=== PATIENT | female | born 1980 | race African-American/Black ===

== ENCOUNTER 2017-10-09 15:34 | Observation (INO) | payer OTHER ==
[~2017-10-09] VITALS: Ht 154.9 cm; Wt 75.0 kg
[~2017-10-09 15:34] MED LIST: AMLO5TAB22 PO; METH750T2 PO; MOBI15TA PO
[2017-10-09 15:36] VITALS: BP 114/74; PULSE 103; RESP 16; TEMP 97.9; O2SAT 99
[2017-10-09 16:11] LABS: AUTOMATED NEUTROPHIL # 4.3 TH/MM3 (1.8-7.7); BASOPHIL % 0.2 % (0.0-2.0); EOSINOPHIL # 0.2 TH/MM3 (0-0.4); EOSINOPHIL % 4.2 % (0.0-4.0); HEMATOCRIT 34.2 % (35.0-46.0); HEMO FLAGS DIFF FINAL; LYMPH % 8.1 % (9.0-44.0); LYMPHOCYTE # 0.5 TH/MM3 (1.0-4.8); MEAN CELL VOLUME 81.8 FL (80.0-100.0); MEAN CORPUSCULAR HGB CONC 34.2 % (32.0-36.0); MONO % 13.6 % (0.0-8.0); NEUT % 73.9 % (16.0-70.0); PLATELET COUNT 268 TH/MM3 (150-450); RED BLOOD COUNT 4.18 MIL/MM3 (4.00-5.30); RED CELL DISTRIBUTION WIDTH 13.3 % (11.6-17.2); WHITE BLOOD COUNT 5.9 TH/MM3 (4.0-11.0)
[2017-10-09 16:14] LABS: BACTERIA, URINE MOD /hpf; BLOOD, URINE NEG (NEG); COMMENT (UR) CULTURE INDICATED; CULTURE IF INDICATED CULTURE INDICATED; GLUCOSE,URINE NEG (NEG); KETONE, URINE 10 mg/dL (NEG); MUCUS URINE FEW /lpf (OCC); NITRITE,URINE NEG (NEG); SQUAMOUS EPITHELIAL CELL URINE 4 /hpf (0-5); URINE COLOR YELLOW (YELLW/STRAW)
[2017-10-09 16:24] LABS: ALT (GPT) 46 U/L (10-53); ANION GAP 9 MEQ/L (5-15); AST (GOT) 26 U/L (15-37); BICARBONATE 20.8 MEQ/L (21.0-32.0); BLOOD UREA NITROGEN 5 MG/DL (7-18); CHLORIDE 99 MEQ/L (98-107); GLOMERULAR FILTRATION RATE 113 ML/MIN (>89); SODIUM (NA) 129 MEQ/L (136-145)
[2017-10-09 16:39] LABS: APTT (PATIENT) 26.4 SEC (24.3-30.1); INTERNATIONAL NORMALIZED RATIO 0.9 RATIO
[2017-10-09 16:40] LABS: ALKALINE PHOSPHATASE 43 U/L (45-117); BETA HCG QUANT 56013 MIU/ML (0-5); TOTAL BILIRUBIN ADULT 0.2 MG/DL (0.2-1.0)
[2017-10-09] MEDS ORDERED: BACT800T5 PO (17:13)
[2017-10-09] MEDS ORDERED: ZOFR4TAB PO (17:13)
[2017-10-09] MEDS ORDERED: SODIUM CHLOR 0.9% 1000 ML INJ 1,000 ML IV SCH (17:25)
[2017-10-09] MEDS ORDERED: cefTRIAXone INJ 1,000 MG in SODIUM CHLORIDE 0.9% INJ 100 ML IV ONE (17:30)
--- NOTE | 2017-10-09 17:34 | PD ---
HPI Chief Complaint: Medical Clearance Time Seen by Provider: 17:21 Travel History International Travel<30 days: No Contact w/Intl Traveler<30days: No Traveled to known affect area: No History of Present Illness HPI 37-year-old female approximately 15 weeks and here for evaluation of lower back pain, flank pain, nausea, vomiting, upper extremity bruising, and slight headache. The patient reports that she was diagnosed with a UTI by her application support engineer Dr. Park on of last week and was started on Bactrim. Since then she has been having nausea and vomiting which consisted of food and is sometimes bilious. No blood. Lower back and flank pain is moderate, worse with movements but she denies urinary symptoms. No vaginal bleeding or discharge. No abdominal pain. Subjective fevers and chills. She denies physical abuse or any known trauma. PFSH Past Medical History Anxiety: Yes Depression: Yes Cancer: No Cardiovascular Problems: Yes (htn) Diabetes: No Diminished Hearing: No Hypertension: Yes Psychiatric: Yes Immunizations Current: Yes Migraines: Yes ?: LMP: 06/2017 : 0 Past Surgical History Oral Surgery: Yes Other Surgery: Yes (tumor removal from uterus ) Social History Alcohol Use: Yes (OCCASIONAL) Tobacco Use: No Substance Use: No Allergies-Medications (Allergen,Severity, Reaction): Coded Allergies: Calcium Channel Blocking Agent Dilt (Verified Allergy, Severe, Headache, 10/09/17) Reported Meds & Prescriptions Reported Meds & Active Scripts Active Reported Zofran (Ondansetron HCl) 4 Mg Tab 4 Mg PO Q8HR PRN Bactrim DS (Sulfamethoxazole-Trimethoprim) 800-160 Mg Tab 1 Tab PO BID Review of Systems Except as stated in HPI: all other systems reviewed are Neg Physical Exam Narrative GENERAL: Well-developed, well-nourished, comfortable, no apparent distress. SKIN: Focused skin assessment warm/dry. Slight ecchymosis in various stages of healing on bilateral upper extremities. HEAD: Atraumatic. Normocephalic. EYES: Pupils equal and round. No scleral icterus. No injection or drainage. ENT: Mucous membranes pink and moist. NECK: Trachea midline. No JVD. CARDIOVASCULAR: Regular rate and rhythm. RESPIRATORY: No accessory muscle use. Clear to auscultation. Breath sounds equal bilaterally. GASTROINTESTINAL: Abdomen soft, non-tender, gravid uterus palpable above the umbilicus. MUSCULOSKELETAL: No obvious deformities. No clubbing. No cyanosis. No edema. Bilateral CVA tenderness. NEUROLOGICAL: Awake and alert. No obvious cranial nerve deficits. Motor grossly within normal limits. Normal speech. PSYCHIATRIC: Appropriate mood and affect; insight and judgment normal. Data Data Last Documented VS Vital Signs Date Time Temp Pulse Resp B/P (MAP) Pulse Ox O2 Delivery O2 Flow Rate FiO2 10/09/17 15:36 97.9 103 16 114/74 (87) 99 Orders Orders Beta Hcg (Quant/Titer) (10/09/17 15:43) Complete Blood Count With Diff (10/09/17 15:43) Comprehensive Metabolic Panel (10/09/17 15:43) Lipase (10/09/17 15:43) Prothrombin Time / Inr (Pt) (10/09/17 15:43) Act Partial Throm Time (Ptt) (10/09/17 15:43) Urinalysis - C+S If Indicated (10/09/17 15:43) Ed Urine Pregnancytest Poc (10/09/17 15:43) Urine Culture (10/09/17 15:50) Sodium Chlor 0.9% 1000 Ml Inj (Ns 1000 M (10/09/17 17:25) Ceftriaxone Inj (Rocephin Inj) (10/09/17 17:30) Cefazolin 2 Gm Premix (Ancef 2 Gm Premix (10/09/17 18:30) Lactated Ringer's 1000 Ml Inj (Lr 1000 M (10/09/17 18:30) Ondansetron Inj (Zofran Inj) (10/09/17 18:30) Ondansetron Inj (Zofran Inj) (10/09/17 18:30) Admit Order (Ed Use Only) (10/09/17 18:18) Labs Laboratory Tests Test 10/09/17 15:50 10/09/17 15:52 Urine Color YELLOW Urine Turbidity HAZY Urine pH 6.0 Urine Specific [place] 1.012 Urine Protein NEG mg/dL Urine Glucose (UA) NEG mg/dL Urine Ketones 10 mg/dL Urine Occult Blood NEG Urine Nitrite NEG Urine Bilirubin NEG Urine Urobilinogen LESS THAN 2.0 MG/DL Urine Leukocyte Esterase LARGE Urine RBC 3 /hpf Urine WBC 2 /hpf Urine Squamous Epithelial Cells 4 /hpf Urine Bacteria MOD /hpf Urine Mucus FEW /lpf Microscopic Urinalysis Comment CULTURE INDICATED White Blood Count 5.9 TH/MM3 Red Blood Count 4.18 MIL/MM3 Hemoglobin 11.7 GM/DL Hematocrit 34.2 % Mean Corpuscular Volume 81.8 FL Mean Corpuscular Hemoglobin 28.0 PG Mean Corpuscular Hemoglobin Concent 34.2 % Red Cell Distribution Width 13.3 % Platelet Count 268 TH/MM3 Mean Platelet Volume 7.2 FL Neutrophils (%) (Auto) 73.9 % Lymphocytes (%) (Auto) 8.1 % Monocytes (%) (Auto) 13.6 % Eosinophils (%) (Auto) 4.2 % Basophils (%) (Auto) 0.2 % Neutrophils # (Auto) 4.3 TH/MM3 Lymphocytes # (Auto) 0.5 TH/MM3 Monocytes # (Auto) 0.8 TH/MM3 Eosinophils # (Auto) 0.2 TH/MM3 Basophils # (Auto) 0.0 TH/MM3 CBC Comment DIFF FINAL Differential Comment Prothrombin Time 10.0 SEC Prothromb Time International Ratio 0.9 RATIO Activated Partial Thromboplast Time 26.4 SEC Blood Urea Nitrogen 5 MG/DL Creatinine 0.71 MG/DL Random Glucose 85 MG/DL Total Protein 8.1 GM/DL Albumin 3.7 GM/DL Calcium Level 9.0 MG/DL Alkaline Phosphatase 43 U/L Aspartate Amino Transf (AST/SGOT) 26 U/L Alanine Aminotransferase (ALT/SGPT) 46 U/L Total Bilirubin 0.2 MG/DL Sodium Level 129 MEQ/L Potassium Level 4.0 MEQ/L Chloride Level 99 MEQ/L Carbon Dioxide Level 20.8 MEQ/L Anion Gap 9 MEQ/L Estimat Glomerular Filtration Rate 113 ML/MIN Lipase 72 U/L Human Chorionic Gonadotropin, Quant 22573 MIU/ML [facility] Medical Decision Making Medical Screen Exam Complete: Yes Emergency Medical Condition: Yes Differential Diagnosis Pyelonephritis, nephrolithiasis, thrombocytopenia, coagulopathy, metabolic abnormality, dehydration, UTI, cystitis Narrative Course Vital signs reviewed. Labs are remarkable for sodium 129. UA is suggestive of UTI. Patient was written for a liter of normal saline IV bolus and IV Rocephin. Case discussed with application support engineer Dr. Aiken who was covering for the patient's application support engineer Dr. Park. She recommends serving the patient on Ancef 2 g IV every 8 hours as well as LR at 150 cc per hour. Zofran as needed for nausea. She will admit the patient to her service for further treatment and evaluation of pyelonephritis in . Diagnosis Primary Impression: Pyelonephritis affecting Qualified Codes: O23.02 - Infections of kidney in , second trimester Additional Impressions: Nausea and vomiting Qualified Codes: R11.2 - Nausea with vomiting, unspecified Dehydration Admitting Information Admitting Physician Requests: Observation Ubaldo Jackson MD Oct 09, 2017 17:34
[2017-10-09] MEDS: LACTATED RINGER'S 1000 ML INJ 1,000 ML IV SCH (18:24)
[2017-10-09] MEDS: ceFAZolin 2 GM PREMIX 50 ML IV SCH (18:27)
[2017-10-09] MEDS ORDERED: ONDANSETRON HCL 4 MG/2 ML VIAL IV PUSH ONE (18:30)
[2017-10-09] MEDS ORDERED: ONDANSETRON HCL 4 MG/2 ML VIAL IV PUSH PRN (18:30)
[2017-10-09 18:35] VITALS: BP 128/66; PULSE 96; RESP 20; O2SAT 100
[2017-10-10 00:59] VITALS: BP 97/52; PULSE 89; RESP 18; TEMP 98.2; O2SAT 97
[2017-10-10] MEDS: LACTATED RINGER'S 1000 ML INJ 1,000 ML IV SCH ×2 (01:10→07:50)
[2017-10-10] MEDS: ceFAZolin 2 GM PREMIX 50 ML IV SCH ×2 (02:22→10:52)
[2017-10-10 05:26] VITALS: BP 98/56; PULSE 86; RESP 16; TEMP 98.4; O2SAT 97
--- NOTE | 2017-10-10 08:53 | HHI.DCPOC ---
Discharge Care Plan Diagnosis: (1) Pyelonephritis affecting (2) Nausea and vomiting (3) Dehydration Report Symptoms to Your Doctor -Temperature above 100.5 degrees -Redness, of incision or excessive or foul smelling drainage -Unusual pain or calf pain -Increased vaginal bleeding -Painful or difficulty urinating -Feelings of extreme sadness or anxiety after 2 weeks Goals to Promote Your Health * To prevent worsening of your condition and complications * To maintain your health at the optimal level Directions to Meet Your Goals Take your medications as prescribed Follow your dietary instruction Follow activity as directed Ensure plenty of rest for recovery Drink fluids for hydration Keep your appointments as scheduled Take your immunizations and boosters as scheduled If your symptoms worsen call your PCP, if no PCP go to Urgent Care Center or Emergency Room Smoking is Dangerous to Your Health. Avoid second hand smoke Call the 24-hour crisis hotline for domestic abuse at Jese Park MD Oct 10, 2017 08:53
[2017-10-10 09:22] VITALS: BP 104/76; PULSE 90; RESP 18; TEMP 98; O2SAT 94
[2017-10-10 11:12] VITALS: BP 115/64; PULSE 95; RESP 18; TEMP 97.6; O2SAT 96
--- NOTE | 2017-10-10 23:12 | HHI.DS ---
Discharge Summary Admission Date Oct 09, 2017 at 18:20 Discharge Date: Oct 10, 2017 Admitting Diagnosis Pyelonephritis in , dehydration (1) Dehydration Diagnosis: Principal ICD Codes: E86.0 - Dehydration Status: Resolved (2) Diagnosis: Secondary ICD Codes: Z34.90 - Encounter for supervision of normal , unspecified , unspecified trimester CBC/BMP: 10/09/17 1552 10/09/17 1552 Significant Findings Laboratory Tests Test 10/09/17 15:50 10/09/17 15:52 Urine Turbidity HAZY (CLEAR) Urine Ketones 10 mg/dL (NEG) Urine Leukocyte Esterase LARGE (NEG) Urine Bacteria MOD /hpf (NONE) Urine Mucus FEW /lpf (OCC) Hematocrit 34.2 % (35.0-46.0) Neutrophils (%) (Auto) 73.9 % (16.0-70.0) Lymphocytes (%) (Auto) 8.1 % (9.0-44.0) Monocytes (%) (Auto) 13.6 % (0.0-8.0) Eosinophils (%) (Auto) 4.2 % (0.0-4.0) Lymphocytes # (Auto) 0.5 TH/MM3 (1.0-4.8) Blood Urea Nitrogen 5 MG/DL (7-18) Alkaline Phosphatase 43 U/L (45-117) Sodium Level 129 MEQ/L (136-145) Carbon Dioxide Level 20.8 MEQ/L (21.0-32.0) Lipase 72 U/L (73-393) Human Chorionic Gonadotropin, Quant 38295 MIU/ML (0-5) Hospital Course pt was admitted, given IV hydration and ancef. by the following morning the patient's symptoms had resolved and she was requesting d/c home. Pt Condition on Discharge: Stable Discharge Disposition: Discharge Home Discharge Instructions DIET: Follow Instructions for: As Tolerated, No Restrictions Activities you can perform: Regular-No Restrictions Jese Park MD Oct 10, 2017 23:12
--- NOTE | 2017-10-10 23:34 | MH ---
cc: LILA CORONA DATE OF ADMISSION: 10/09/2017 ADMITTING DIAGNOSIS: HISTORY OF PRESENT ILLNESS The patient is a 37-year-old 1, para 0 who presents at 15 weeks gestation complaining of a four day history of back pain, nausea, vomiting and headache. The patient had been given a prescription for Bactrim to treat UTI in the office. The patient reports the onset of nausea, vomiting and severe back pain approximately two to three days. Prior to presenting to the emergency room she states the pain had become severe and was not alleviated by Tylenol. Thus she presented to the ER. She denied having any blood in her urine, fever or chills. She also denied severe abdominal pain or bleeding. The patient states she had never had symptoms like this before. She denied trauma. No shortness of breath or chest pain, no dizziness or lightheadedness. Review of all other systems is negative. The patient's due date is March 31, that makes her approximately 15 weeks gestation today. PAST MEDICAL HISTORY: Significant for: Depression. Hypertension. Not currently requiring medications. PAST SURGICAL HISTORY: Significant for: Abdominal myomectomy in January of 2016. ORTHOPEDIC PHYSICIAN ASSISTANT HISTORY: No abnormal pap smears or STDs. Prior to her cycles were normal and coming every month. OBSTETRICAL HISTORY: This is her first . FAMILY HISTORY: Maternal grandfather with diabetes. Mother with heart disease. Paternal aunt and paternal grandfather also both have diabetes. SOCIAL HISTORY: Negative for cigarettes, alcohol or street drugs. 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 ALLERGIES: NONE. PHYSICAL EXAMINATION She is afebrile. Her height is 5'2", weight is 170. VITAL SIGNS: Blood pressure is 118/65, pulse 85. GENERAL: No acute distress. HEART: Regular rate and rhythm. LUNGS: Clear to auscultation bilaterally. BACK: Reveals no CVA tenderness. ABDOMEN: Gravid. heart tones are auscultated 140s to 150s. EXTREMITIES: Lower extremities nontender, non-edematous. BACK: No CVA tenderness. LABORATORY DATA: Urine revealed ketones. White count was normal. Potassium 4.0. IMPRESSION Abdominal pain, possible early pyelonephritis. The patient was admitted, given IV hydration, IV Ancef, and Zofran. PLAN: The patient will be admitted, watch for clinical improvement. It should also be noted that the patient is afebrile. MD CINTHYA Gonzales/RUBY /11:03 PM /11:15 PM
== END 2017-10-10 12:44 | disposition home or self-care (01) ==
LOC: NEPD 15:34 → NEDA 18:20 → NEPHCDU 19:34
PROVIDERS: ADMIT Obstetrics & Gynecology; ATTEND Obstetrics & Gynecology
DX: O23.42 Unspecified infection of urinary tract in pregnancy, second trimester (principal); E86.0 Dehydration; O99.282 Endocrine, nutritional and metabolic diseases complicating pregnancy, second trimester; O21.9 Vomiting of pregnancy, unspecified; O09.512 Supervision of elderly primigravida, second trimester; R51 Headache; Z3A.15 15 weeks gestation of pregnancy; I10 Essential (primary) hypertension
CPT/HCPCS: 80053; 81001; 83690; 84702; 85025; 85610; 85730; 87086; 96361; 96365; 96375; 96376; 99285; G0378; J0690; J0696; J2405; J7030; J7120

== ENCOUNTER 2017-10-27 08:13 | Emergency (ER) | payer OTHER ==
[~2017-10-27 08:13] MED LIST changes: -AMLO5TAB22 PO; -METH750T2 PO; -MOBI15TA PO; +ZOFR4TAB PO
--- NOTE | 2017-10-27 09:42 | PD ---
HPI Chief Complaint Fell down at home on her stomach Date Seen: Oct 27, 2017 Time Seen: 09:30 Travel History International Travel<30 Days: No Contact w/Intl Traveler<30Days: No Known Affected Area: No History of Present Illness HPI Patient is 37-year-old black female 1 P0 at [address] Park for care who was at home and had a fall out of the yard onto her stomach of and since then has had some slight right sided abdominal pain but otherwise no problems. no bleeding noted no leakage of fluid Weeks Gestation: 18 Para: 0 : 1 History Past Surgical History Narrative Surgical had a uterine myomectomy in the past Social History Alcohol Use: No Tobacco Use: No Substance Abuse: No Allergies-Medications (Allergen,Severity, Reaction): Coded Allergies: Calcium Channel Blocking Agent Dilt (Verified Allergy, Severe, Headache, 10/09/17) Home Meds Reported Medications Ondansetron (Zofran) 4 Mg Tab, 4 MG PO Q8HR Y for NAUSEA OR VOMITING, TAB 0 Refills 10/09/17 Review of Systems General / Constitutional: No: Fever, Weight Gain, Chills, Other Eyes: No: Diploplia, Blurred Vision, Visual changes, Pain, Photophobia HENT: No: Headaches, Vertigo, Lightheadedness Cardiovascular: No: Irregular Rhythm, Chest Pain or Discomfort, Palpitations, Tachycardia, Syncope, Varicosities, Edema, Cyanosis Respiratory: No: Cough, Short of Breath, Other Gastrointestinal: Abdominal Pain, No: Nausea, Vomiting, Diarrhea Genitourinary: No: Decreased Urinary Output, Oliguria Musculoskeletal: No: Limited ROM, Weakness, Cramping, Edema, Pain Skin: No Rash, No Itching, No Dryness, No Lumps, No Change in Pigmentation, No Change in Nails, No Alopecia, No Lesions Neurologic: No: Weakness, Dizziness, Syncope, Focal Abnormalities, Coordination Problem, Headache, Slurred Speech, Seizures Psychiatric: No: Depression, Suicidal Ideations, Homicidal Ideation Endocrine: No: Heat Intolerance, Cold Intolerance, Polydipsia, Polyuria, Other Physical Exam Narrative GENERAL: Well-nourished, well-developed patient. SKIN: Warm and dry. HEAD: Normocephalic and atraumatic. EYES: No scleral icterus. No injection or drainage. ENT: No nasal drainage noted. Mucous membranes pink. Airway patent. NECK: Supple, trachea midline. No JVD. CARDIOVASCULAR: Regular rate and rhythm without murmurs, gallops, or rubs. RESPIRATORY: Breath sounds equal bilaterally. No accessory muscle use. BREASTS: Bilateral exam showed no masses , no retractions, no nipple discharge. ABDOMEN/GI: Abdomen soft, non-tender, bowel sounds present, no rebound, no guarding Gravid to [18-] weeks size Fundal Height: [Just below umbilicus-] FHT's: 144 EXTREMITIES: No cyanosis or edema. BACK: Nontender without obvious deformity. No CVA tenderness. NEUROLOGICAL: Awake and alert. Motor and sensory grossly within normal limits. Five out of 5 muscle strength in all muscle groups. Normal speech. MDM Interpretation(s) Patient is 37-year-old black female at 18 weeks who presented after falling at home. She fell and hit her stomach but no other injury noted. She' s had no bleeding or leakage of fluid. heart tones are positive. Plan The patient to be discharged today to home observation she will observe for any increase in pain or vaginal leakage or bleeding. She is to follow-up with her OB provider Diagnosis Diagnosis: Primary Impression: 18 weeks gestation of Additional Impression: Fall Disposition: 01 DISCHARGE HOME Condition: Stable Patient Instructions: General Instructions Additional Instructions: drink 8-10 glasses of water a day. Keep shceduled appointments. Departure Forms: Tests/Procedures Ricky Valdovinos II, MD Oct 27, 2017 09:42
== END 2017-10-27 10:18 | disposition home or self-care (01) ==
LOC: HOBED 08:13
DX: O26.892 Other specified pregnancy related conditions, second trimester (principal); R10.9 Unspecified abdominal pain; Z3A.18 18 weeks gestation of pregnancy
CPT/HCPCS: 99283

== ENCOUNTER → 2017-11-01 | Outpatient (CLI) | payer OTHER | LOC: HPND 07:56 | PROVIDERS: ATTEND Obstetrics & Gynecology | DX: O09.512 Supervision of elderly primigravida, second trimester (principal); O99.322 Drug use complicating pregnancy, second trimester; O10.012 Pre-existing essential hypertension complicating pregnancy, second trimester | CPT/HCPCS: 76811 ==

== ENCOUNTER → 2017-11-29 | Outpatient (CLI) | payer OTHER | LOC: HPND 07:42 | PROVIDERS: ATTEND Obstetrics & Gynecology | DX: O99.322 Drug use complicating pregnancy, second trimester (principal); O10.012 Pre-existing essential hypertension complicating pregnancy, second trimester; O09.512 Supervision of elderly primigravida, second trimester | CPT/HCPCS: 76816; 76825; 76827; 93325 ==

== ENCOUNTER 2017-12-09 11:04 | Emergency (ER) | payer OTHER ==
--- NOTE | 2017-12-09 12:11 | PD ---
HPI Chief Complaint Fall Date Seen: Dec 09, 2017 Time Seen: 12:00 Travel History International Travel<30 Days: No Contact w/Intl Traveler<30Days: No Known Affected Area: No History of Present Illness HPI 37-year-old who is at 24 weeks gestation complains of falling this morning. Patient states that she was walking outside and tripped over a stump and fell forward onto her hands stomach and chest. Patient complains of a mild backache but really no other abrasions lacerations or pain. Patient states she' s had uncomplicated Weeks Gestation: 24 Para: 0 : 1 History Past Medical History Medical History: Denies Significant Hx Past Surgical History Narrative Surgical Uterine myomectomy Family History Family History: Negative Social History Alcohol Use: No Tobacco Use: No Substance Abuse: No Allergies-Medications (Allergen,Severity, Reaction): Coded Allergies: Calcium Channel Blocking Agent Dilt (Verified Allergy, Severe, Headache, 10/09/17) Home Meds Reported Medications Ondansetron (Zofran) 4 Mg Tab, 4 MG PO Q8HR Y for NAUSEA OR VOMITING, TAB 0 Refills 10/09/17 Review of Systems Except as stated in HPI: all other systems reviewed are Neg Physical Exam Narrative GENERAL: Well-nourished, well-developed patient. SKIN: Warm and dry. HEAD: Normocephalic and atraumatic. EYES: No scleral icterus. No injection or drainage. ENT: No nasal drainage noted. Mucous membranes pink. Airway patent. NECK: Supple, trachea midline. No JVD. CARDIOVASCULAR: Regular rate and rhythm without murmurs, gallops, or rubs. RESPIRATORY: Breath sounds equal bilaterally. No accessory muscle use. ABDOMEN/GI: Abdomen soft, non-tender, bowel sounds present, no rebound, no guarding Gravid to [24-] weeks size Fundal Height: [-] GENITOURINARY: Deferred External Genitalia: intact and normal in appearance BUS glands: [-] Cervix: [-] Dilatation: [-] Effacement: [-] Station: [-] Presentation: [-] Membranes: [intact or ruptured] Uterine Contractions: [-] FHT's: Category: [-] 1 Baseline: [-] 140 Reactive: [-] Moderate Variability: [-] Moderate Decels: [-] Absent EXTREMITIES: No cyanosis or edema. BACK: Nontender without obvious deformity. No CVA tenderness. NEUROLOGICAL: Awake and alert. Motor and sensory grossly within normal limits. Five out of 5 muscle strength in all muscle groups. Normal speech. Data Data Vital Signs Reviewed: Yes MDM Medical Record Reviewed: Yes Plan 37-year-old 24 weeks gestation monitored after a fall with no signs of abruption, vaginal bleeding, or contractions Follow-up with drywall mechanic as scheduled Diagnosis Diagnosis: Primary Impression: 24 weeks gestation of Additional Impression: Fall due to stumbling Disposition: 01 DISCHARGE HOME Carolyn Gutiérrez MD Dec 09, 2017 12:11
== END 2017-12-09 13:28 | disposition home or self-care (01) ==
LOC: HOBED 11:04
DX: O9A.212 Injury, poisoning and certain other consequences of external causes complicating pregnancy, second trimester (principal); W01.0XXA Fall on same level from slipping, tripping and stumbling without subsequent striking against object, initial encounter; Z3A.24 24 weeks gestation of pregnancy
CPT/HCPCS: 99283

== ENCOUNTER → 2018-01-04 | Outpatient (CLI) | payer OTHER | LOC: HPND 07:58 | PROVIDERS: ATTEND Obstetrics & Gynecology | DX: O10.012 Pre-existing essential hypertension complicating pregnancy, second trimester (principal); O09.522 Supervision of elderly multigravida, second trimester | CPT/HCPCS: 76816 ==

== ENCOUNTER → 2018-02-01 | Outpatient (CLI) | payer OTHER, MEDICAID | LOC: HPND 10:49 | PROVIDERS: ATTEND Obstetrics & Gynecology | DX: O09.523 Supervision of elderly multigravida, third trimester (principal); O10.013 Pre-existing essential hypertension complicating pregnancy, third trimester | CPT/HCPCS: 76816 ==

== ENCOUNTER 2018-03-08 09:32 | Inpatient (IN) | payer OTHER, MEDICAID ==
[~2018-03-08] VITALS: Ht 157.5 cm; Wt 84.4 kg
[2018-03-08] MEDS ORDERED: LACTATED RINGER'S 1000 ML INJ 1,000 ML IV ONE (11:45)
[2018-03-08 11:52] LABS: AUTOMATED NEUTROPHIL # 4.1 TH/MM3 (1.8-7.7); BASOPHIL % 0.5 % (0.0-2.0); EOSINOPHIL % 0.7 % (0.0-4.0); HEMATOCRIT 32.2 % (35.0-46.0); HEMOGLOBIN 10.6 GM/DL (11.6-15.3); LYMPH % 21.2 % (9.0-44.0); LYMPHOCYTE # 1.3 TH/MM3 (1.0-4.8); MEAN CELL VOLUME 85.3 FL (80.0-100.0); MEAN CORPUSCULAR HEMOGLOBIN 28.2 PG (27.0-34.0); MEAN PLATELET VOLUME 7.5 FL (7.0-11.0); MONO % 8.9 % (0.0-8.0); MONOCYTE # 0.5 TH/MM3 (0-0.9); NEUT % 68.7 % (16.0-70.0); PLATELET COUNT 287 TH/MM3 (150-450); RED BLOOD COUNT 3.77 MIL/MM3 (4.00-5.30); RED CELL DISTRIBUTION WIDTH 15.5 % (11.6-17.2)
[2018-03-08 12:09] LABS: ALT (GPT) 24 U/L (10-53); AST (GOT) 20 U/L (15-37); BICARBONATE 21.1 MEQ/L (21.0-32.0); BLOOD UREA NITROGEN 5 MG/DL (7-18); CALCIUM 9.1 MG/DL (8.5-10.1); CHLORIDE 109 MEQ/L (98-107); CREATININE 0.51 MG/DL (0.50-1.00); GLOMERULAR FILTRATION RATE 165 ML/MIN (>89); GLUCOSE,RANDOM 68 MG/DL (74-106); SODIUM (NA) 140 MEQ/L (136-145)
[2018-03-08 12:12] LABS: ALKALINE PHOSPHATASE 82 U/L (45-117); TOTAL BILIRUBIN ADULT 0.2 MG/DL (0.2-1.0); TOTAL PROTEIN 6.8 GM/DL (6.4-8.2)
[2018-03-08] MEDS ORDERED: LACTATED RINGER'S 1000 ML INJ 1,000 ML IV SCH (12:45)
[2018-03-08 13:42] LABS: BACTERIA, URINE MANY /hpf; BILIRUBIN, URINE NEG (NEG); BLOOD, URINE NEG (NEG); GLUCOSE,URINE NEG (NEG); KETONE, URINE NEG (NEG); NITRITE,URINE NEG (NEG); PH, URINE 6.5 (5.0-8.5); SQUAMOUS EPITHELIAL CELL URINE 16 /hpf (0-5); TRANSITIONAL EPI CELLS, URINE <1 /hpf; URINE COLOR LIGHT-YELLOW (YELLW/STRAW); URINE LEUKOCYTE ESTERASE LARGE (NEG)
--- NOTE | 2018-03-09 08:39 | MH ---
cc: Lisa Stephenson MD DATE OF ADMISSION: 03/08/2018 HISTORY OF PRESENT ILLNESS: The patient is a 37-year-old black female, G1 at approximately 36 weeks and 5 days gestation who presented for routine biophysical testing due to a history of hypertension and on the biophysical was found to have an GARRETT of 2.5. The rest of her biophysical was within normal limits. The patient reports that she has had good movement. She denies rupture of membranes. Denies bleeding and no contractions. Her care has really been uneventful except for anemia. PAST MEDICAL HISTORY: Pertinent for a history of depression, a history of hypertension, but not on medication. PAST SURGICAL HISTORY: An abdominal myomectomy. MEDICATIONS: Currently are vitamins and iron. ALLERGIES TO MEDICATIONS: NONE. SOCIAL HISTORY: No tobacco, no alcohol, no drug use. 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 FAMILY HISTORY: Heart disease and diabetes. [employer]ER [employer] HISTORY: No abnormal Paps. No STDs. PHYSICAL EXAM: VITAL SIGNS: Weight is 181, blood pressure 124/84, pulse of 70. BREASTS: Without masses, nodes or discharge. CHEST: Clear to auscultation bilaterally. CARDIAC: Regular rate and rhythm without murmur, rub or gallop. ABDOMEN: Gravid, a fundal height of 36. No hepatosplenomegaly. No CVA tenderness. No hernias. Cervical exam was deferred. EXTREMITIES: Without clubbing, cyanosis or edema. External monitoring revealed a baseline in the 140s with a reactive tracing, no contractions and the ultrasound revealed a vertex intrauterine with an GARRETT of 2.5 with breathing tone and movement noted. ASSESSMENT AND PLAN: The patient is a 37-year-old black female, G1 at 36 weeks and 5 days gestation with a history of hypertension, but normal throughout the and not on medication and an incidental amniotic fluid index of 2.5. The plan will be for 23-hour admission to IV hydrate the patient as well as orally hydrate the patient, continuously monitor the patient and followup an amniotic fluid index in the next day to see if there is an improvement. If there is not any improvement, we will plan for delivery, which she will be having a section due to her myomectomy. MD SUREKHA Aguilar/DL , 08:25 AM , 08:38 AM
[2018-03-09] MEDS: PRENATAL VITAMIN CHEWABLE TAB PO SCH (10:14)
[2018-03-09] MEDS ORDERED: SODIUM CHLORIDE FLUSH PRN IV FLUSH (10:15)
[2018-03-09] MEDS ORDERED: CHLORHEXIDINE GLUCONATE 2 % 1 PACK (2 CLOTHS) TOPICAL SCH (10:30)
[2018-03-09] MEDS ORDERED: ceFAZolin 2 GM PREMIX 50 ML - implanted port removal IV SCH (10:30)
[2018-03-09] MEDS ORDERED: SODIUM CHLORIDE 0.9% 1000 ML IV SCH (10:30)
--- NOTE | 2018-03-09 12:37 | PD.OB.ANTE ---
Subjective Interval History Pt is doing well, good fm, no co Objective Lab & Micro Results Date/Time Source Procedure Growth Status 03/08/18 10:45 Genital Genital Region Group B Streptococcus Screen - Preliminary RESULTS PENDING Resulted 03/08/18 10:15 Urine Clean Catch Urine Culture - Final 50-100,000 CFU/ML MIXED MARY... Complete Physical Exam GENERAL: Well-nourished, well-developed patient. CARDIOVASCULAR: Regular rate and rhythm without murmurs, gallops, or rubs. RESPIRATORY: Breath sounds equal bilaterally. No accessory muscle use. ABDOMEN/GI: Abdomen soft, non-tender. Fundus: [-] GENITOURINARY: External Genitalia: intact and normal in appearance Cervix: [-] Dilatation: [-] Effacement: [-] Station: [-] Presentation: [-] Membranes: [-] Uterine Contractions: [-] FHT's: Category: baseline 140s, reactive Baseline: [-] Reactive: [-] Variability: [-] Decels: [-] EXTREMITIES: No cyanosis or edema, non-tender, without signs of DVT. Assessment and Plan Assessment and Plan 38 yo BF G1 at 36 wks 6 dys with GARRETT of 3.9 after 24 hrs of IV hydration up from 2.5...discussed case with pt and rec c/s this Monday due to oligo and hx of myomectomy...pt understands and agrees Lisa Stephenson MD Mar 09, 2018 12:37
[2018-03-09] MEDS ORDERED: diphenhydrAMINE HCL 50 MG/ML VIAL ONE (16:00)
[2018-03-09] MEDS ORDERED: diphenhydrAMINE HCL 50 MG/ML VIAL IV ONE (16:00)
[2018-03-09] MEDS: SODIUM CHLORIDE FLUSH BID IV FLUSH SCH (21:00)
[2018-03-10] MEDS: PRENATAL VITAMIN CHEWABLE TAB PO SCH (10:12)
[2018-03-10] MEDS: SODIUM CHLORIDE FLUSH BID IV FLUSH SCH (10:12)
--- NOTE | 2018-03-10 10:23 | PD.OB.ANTE ---
Subjective Diagnosis: (1) Oligohydramnios Diagnosis: Principal (2) Diagnosis: Principal Objective Lab & Micro Results Date/Time Source Procedure Growth Status 03/08/18 10:45 Genital Genital Region Group B Streptococcus Screen - Preliminary RESULTS PENDING Resulted 03/08/18 10:15 Urine Clean Catch Urine Culture - Final 50-100,000 CFU/ML MIXED MARY... Complete Physical Exam GENERAL: Well-nourished, well-developed patient. ABDOMEN/GI: Abdomen soft, non-tender. Fundus: [-] GENITOURINARY: External Genitalia: intact and normal in appearance Cervix: [-] Dilatation: [-] Effacement: [-] Station: [-] Presentation: [-] Membranes: [-] Uterine Contractions: [-] FHT's: Category: 1 Baseline: [-] Reactive: [-] Variability: [-] Decels: [-] EXTREMITIES: No cyanosis or edema, non-tender, without signs of DVT. Assessment and Plan Assessment and Plan 38 yo BF G1 at 36 wks 6 dys with GARRETT of 3.9 after 24 hrs of IV hydration up from 2.5...cs monday Ad Daniels MD Mar 10, 2018 10:23
[2018-03-11] MEDS: PRENATAL VITAMIN CHEWABLE TAB PO SCH (09:10)
[2018-03-11] MEDS: SODIUM CHLORIDE FLUSH BID IV FLUSH SCH ×2 (09:11→21:00)
--- NOTE | 2018-03-11 10:54 | PD.OB.ANTE ---
Subjective Diagnosis: (1) Oligohydramnios Diagnosis: Principal (2) Diagnosis: Principal Objective Lab & Micro Results Date/Time Source Procedure Growth Status 03/08/18 10:45 Genital Genital Region Group B Streptococcus Screen - Final NO GROUP B STREP ISOLATED Complete 03/08/18 10:15 Urine Clean Catch Urine Culture - Final 50-100,000 CFU/ML MIXED MARY... Complete Physical Exam GENERAL: Well-nourished, well-developed patient. ABDOMEN/GI: Abdomen soft, non-tender. Fundus: [-] GENITOURINARY: External Genitalia: intact and normal in appearance Cervix: [-] Dilatation: deferred Effacement: [-] Station: [-] Presentation: [-] Membranes: [-] Uterine Contractions: [-] FHT's: Category: 1 Baseline: [-] Reactive: [-] Variability: [-] Decels: [-] EXTREMITIES: No cyanosis or edema, non-tender, without signs of DVT. Assessment and Plan Problem List: (1) Oligohydramnios ICD Codes: O41.00X0 - Oligohydramnios, unspecified trimester, not applicable or unspecified (2) ICD Codes: Z34.90 - Encounter for supervision of normal , unspecified , unspecified trimester Assessment and Plan 38 yo BF G1 at 36 wks 6 dys with GARRETT of 3.9 after 24 hrs of IV hydration up from 2.5...cs monday Dr Nelli Daniels,Ad Strong MD Mar 11, 2018 10:54
[2018-03-12 05:57] LABS: AUTOMATED NEUTROPHIL # 3.9 TH/MM3 (1.8-7.7); BASOPHIL % 0.5 % (0.0-2.0); EOSINOPHIL # 0.1 TH/MM3 (0-0.4); EOSINOPHIL % 1.6 % (0.0-4.0); HEMOGLOBIN 10.4 GM/DL (11.6-15.3); LYMPH % 25.7 % (9.0-44.0); LYMPHOCYTE # 1.6 TH/MM3 (1.0-4.8); MEAN CELL VOLUME 84.6 FL (80.0-100.0); MEAN CORPUSCULAR HEMOGLOBIN 28.3 PG (27.0-34.0); MEAN CORPUSCULAR HGB CONC 33.4 % (32.0-36.0); MEAN PLATELET VOLUME 7.4 FL (7.0-11.0); MONO % 9.5 % (0.0-8.0); MONOCYTE # 0.6 TH/MM3 (0-0.9); NEUT % 62.7 % (16.0-70.0); PLATELET COUNT 281 TH/MM3 (150-450); RED BLOOD COUNT 3.67 MIL/MM3 (4.00-5.30); RED CELL DISTRIBUTION WIDTH 15.5 % (11.6-17.2); WHITE BLOOD COUNT 6.2 TH/MM3 (4.0-11.0)
[2018-03-12] MEDS ORDERED: CITRIC ACID-SODIUM CITRATE LIQ 30 ML UDC ONE (10:08)
[2018-03-12] MEDS ORDERED: oxyCODONE/ACETAMINOPHEN 5 MG/325 MG TAB PO PRN (10:15)
[2018-03-12] MEDS ORDERED: SODIUM CHLORIDE 0.9% FLUSH 10 ML FLUSH IV FLUSH PRN (10:15)
[2018-03-12] MEDS ORDERED: KETOROLAC TROMETHAMINE 60 MG/2 ML (IM) VIAL IM PRN (10:15)
[2018-03-12] MEDS ORDERED: MORPHINE SULFATE PF 5 MG/10 ML VIAL ONE (10:25)
[2018-03-12] MEDS ORDERED: ACETAMINOPHEN 1000 MG/100 ML 100 ML IV ONE (10:25)
[2018-03-12] MEDS ORDERED: OXYTOCIN 30 UNITS-500ML PREMIX 500 ML IV ONE (11:00)
[2018-03-12] MEDS ORDERED: OXYTOCIN 30 UNITS-500ML PREMIX 500 ML ONE (11:34)
[2018-03-12] MEDS ORDERED: SODIUM CHLORIDE 0.9% 20 ML VIAL IV ONE (12:00)
[2018-03-12] MEDS ORDERED: DEXAMETHASONE SOD PHOS 4 MG/ML VIAL IV ONE (12:00)
[2018-03-12] MEDS ORDERED: ceFAZolin INJ 1,000 MG VIAL IV ONE (12:00)
[2018-03-12] MEDS ORDERED: ONDANSETRON HCL 4 MG/2 ML VIAL IV ONE (12:00)
[2018-03-12] MEDS ORDERED: OXYTOCIN 10 UNIT/ML AMP IV ONE (12:00)
[2018-03-12] MEDS ORDERED: ONDANSETRON HCL 4 MG/2 ML VIAL ONE (12:07)
[2018-03-12] MEDS: ONDANSETRON HCL 4 MG/2 ML VIAL IV PUSH PRN ×2 (12:09→15:27)
[2018-03-12] MEDS ORDERED: EPIDURAL-NALOXONE HCL 0.4 MG/ML AMP IV PUSH PRN (13:00)
[2018-03-12] MEDS ORDERED: EPIDURAL-DIPHENHYDRAMINE HCL 50 MG/ML VIAL IV PUSH PRN (13:00)
[2018-03-12] MEDS ORDERED: EPIDURAL-NO SYSTEMIC NARCOTICS PRN (13:00)
[2018-03-12] MEDS ORDERED: EPIDURAL-DIPHENHYDRAMINE HCL 50 MG CAP PO PRN (13:00)
[2018-03-12] MEDS ORDERED: EPIDURAL-DO NOT ADMINISTER ANTICOAGULANTS PRN (13:00)
[2018-03-12] MEDS ORDERED: OXYTOCIN 30 UNITS-500ML PREMIX 500 ML IV PRN (15:15)
[2018-03-12] MEDS: LACTATED RINGER'S 1000 ML INJ 1,000 ML IV SCH ×2 (15:29→18:15)
[2018-03-12] MEDS: KETOROLAC TROMETHAMINE 60 MG/2 ML (IM) VIAL IM PRN (15:30)
[2018-03-12 20:02] VITALS: BP 128/83; PULSE 60; RESP 20; TEMP 98.2
[2018-03-12] MEDS ORDERED: SODIUM CHLORIDE 0.9% FLUSH 10 ML FLUSH IV FLUSH SCH (21:00)
[2018-03-13 00:02] VITALS: BP 109/69; PULSE 62; RESP 18; TEMP 98.5
[2018-03-13 04:14] VITALS: BP 103/71; PULSE 60; RESP 18; TEMP 98
[2018-03-13] MEDS: KETOROLAC TROMETHAMINE 60 MG/2 ML (IM) VIAL IM PRN (05:54)
[2018-03-13 05:55] LABS: AUTOMATED NEUTROPHIL # 7.2 TH/MM3 (1.8-7.7); BASOPHIL % 0.3 % (0.0-2.0); EOSINOPHIL % 0.4 % (0.0-4.0); HEMATOCRIT 26.7 % (35.0-46.0); HEMOGLOBIN 8.9 GM/DL (11.6-15.3); LYMPH % 18.4 % (9.0-44.0); LYMPHOCYTE # 1.8 TH/MM3 (1.0-4.8); MEAN CELL VOLUME 84.7 FL (80.0-100.0); MEAN CORPUSCULAR HEMOGLOBIN 28.2 PG (27.0-34.0); MEAN CORPUSCULAR HGB CONC 33.3 % (32.0-36.0); MEAN PLATELET VOLUME 7.5 FL (7.0-11.0); MONO % 8.5 % (0.0-8.0); MONOCYTE # 0.8 TH/MM3 (0-0.9); NEUT % 72.4 % (16.0-70.0); PLATELET COUNT 242 TH/MM3 (150-450); RED BLOOD COUNT 3.15 MIL/MM3 (4.00-5.30); RED CELL DISTRIBUTION WIDTH 15.5 % (11.6-17.2)
--- NOTE | 2018-03-13 08:10 | MP ---
cc: Lisa Stephenson MD DATE OF OPERATION: 03/12/2018 PREOPERATIVE DIAGNOSIS: Intrauterine at 37 weeks and 2 days gestation with previous myomectomy and oligohydramnios. POSTOPERATIVE DIAGNOSIS: Intrauterine at 37 weeks and 2 days gestation with previous myomectomy and oligohydramnios. PROCEDURE PERFORMED: Primary low transverse section. OPERATING SURGEON: Lisa Stephenson MD ANESTHESIA: Spinal. FINDINGS IN SURGERY: Included a viable female, 6 pounds 0 ounces, Apgars 8 and 8. Normal appearing tubes and ovaries. Some small fibroids noted and an adhesion of the anterior surface of the uterus to the anterior abdominal wall. BLOOD LOSS: 800 mL. COMPLICATIONS: None. DESCRIPTION OF OPERATION: After proper consents were obtained, blood had been typed and screened, the patient was taken to the operating room where spinal anesthetic was placed. She was then placed in the dorsal position, sterilely prepped, and draped and a Yoo catheter was placed. At this time, using a sharp knife, I did a revision of a prior Pfannenstiel skin incision. This was carried down to the fascia using the Bovie cautery. The fascia was nicked in the midline and extended superolaterally on each side. We then had blunt dissection of the muscles off of the fascia. The peritoneum was identified, grasped between hemostats and entered sharply with the Metzenbaum scissors. This incision was extended superiorly and inferiorly paying close attention to the bladder. The bladder blade was placed. Bladder flap was developed. Bladder blade was replaced. We made a transverse incision in the lower uterine segment. This was extended using the finger fracture technique. Rupture of membranes revealed clear fluid; however, there was very little of it. We then had a controlled delivery of the vertex, bulb suction to the oropharynx and the nares and nuchal cord x 1 was reduced and then the body followed. Cord was clamped x 2, cut in between, and the was handed to the team in attendance, a viable female weighing 6 pounds with Apgars 8 and 8. At this time, cord blood sample was obtained. Placenta was removed. Uterus was not exteriorized due to the adhesions. I went ahead and closed the uterine incision using a #1 chromic suture, starting at each apex, meeting in the midline in a running interlocking fashion with excellent hemostasis noted. I inspected the abdominal pelvic cavity and irrigated it. On inspection of the ovaries, they appeared to be normal. At this time, muscles were reapproximated using a #1 chromic suture x 1. I then closed the fascia using 0 Vicryl starting each apex, meeting in the midline in a running fashion. Irrigation was performed in the subcutaneous, hemostasis achieved with Bovie cautery and the skin was closed with nanci. All sponge, lap, and needle counts were correct x 3 and the patient was stable to the recovery room. MD SUREKHA Aguilar/KD , 07:54 AM , 08:09 AM MTDD
--- NOTE | 2018-03-13 12:24 | HHI.OB ---
Subjective Post Operative Day: 1 Remarks Pt doing well, no longer n/v, ambulating well, good pain control Objective Vitals/I&O Vital Signs Date Time Temp Pulse Resp B/P (MAP) Pulse Ox O2 Delivery O2 Flow Rate FiO2 03/13/18 04:14 98.0 60 18 103/71 (82) 03/13/18 00:02 98.5 62 18 109/69 (82) 03/12/18 20:02 98.2 60 20 128/83 (98) Result Diagram: 03/13/18 0457 Objective Remarks GENERAL: Well-nourished, well-developed patient. CARDIOVASCULAR: Regular rate and rhythm without murmurs, gallops, or rubs. RESPIRATORY: Breath sounds equal bilaterally. No accessory muscle use. ABDOMEN/GI: Abdomen soft, non-tender, bowel sounds present. Incision: Clean, dry and intact. Fundus: Firm, non-tender at umbilicus. GENITOURINARY: Light to moderate bleeding. EXTREMITIES: No cyanosis or edema, non-tender, without signs of DVT. Medications and IVs Current Medications Medications (Trade) Dose Ordered Sig/Yovana Route Start Time Stop Time Status Last Admin (NS Flush) 2 ml BID IV FLUSH 03/09/18 21:00 03/11/18 21:00 (NS Flush) 2 ml UNSCH PRN IV FLUSH 03/09/18 10:15 Oxytocin 500 ml @ 100 mls/hr UNSCH X1 PRN IV 03/12/18 15:15 03/13/18 15:14 (Mylicon Chew) 80 mg QID PRN PO 03/12/18 10:15 (Toradol Inj) 30 mg Q6H PRN IM 03/12/18 14:00 03/13/18 13:59 03/13/18 05:54 (Percocet 5-325 Mg) 1 tab Q4H PRN PO 03/12/18 10:15 (Percocet 5-325 Mg) 2 tab Q4H PRN PO 03/12/18 10:15 (M-M-R Ii Inj) 0.5 ml ONCE ONCE SQ 03/13/18 16:00 03/13/18 16:01 (Boostrix Inj) 0.5 ml ONCE ONCE IM 03/13/18 16:00 03/13/18 16:01 (Zofran Inj) 4 mg Q6H PRN IV PUSH 03/12/18 10:15 03/12/18 15:27 ([facility]) NO SYSTEMIC NARCOTICS TO BE GIVEN FO... UNSCH PRN .XX 03/12/18 13:00 03/13/18 12:59 (Narcan Inj) 0.4 mg UNSCH PRN IV PUSH 03/12/18 13:00 03/13/18 12:59 (Benadryl Inj) 25 mg Q6H PRN IV PUSH 03/12/18 13:00 03/13/18 12:59 03/12/18 15:28 (Benadryl) 50 mg Q6H PRN PO 03/12/18 13:00 03/13/18 12:59 ([facility]) ALL NURSING DEPARTMENTS UNSCH PRN .XX 03/12/18 13:00 03/13/18 12:59 Assessment/Plan Problem List: (1) Oligohydramnios ICD Codes: O41.00X0 - Oligohydramnios, unspecified trimester, not applicable or unspecified (2) ICD Codes: Z34.90 - Encounter for supervision of normal , unspecified , unspecified trimester Assessment and Plan POD # 1 s/p primary c/s doing well, routine care Lisa Stephenson MD March 13, 2018 12:24
[2018-03-13] MEDS: oxyCODONE/ACETAMINOPHEN 5 MG/325 MG TAB PO PRN ×2 (13:17→21:57)
[2018-03-13] MEDS ORDERED: MEASLES, MUMPS, RUBELLA VACCINE 0.5 ML VIAL SQ ONE (16:00)
[2018-03-13] MEDS ORDERED: DIPHTH/TETANUS/ACEL PERTUSSIS (BOOSTER) 0.5 ML VIAL/PFS IM ONE (16:00)
[2018-03-13] MEDS: IBUPROFEN 600 MG TAB PO PRN ×2 (16:25→21:58)
[2018-03-13 20:56] VITALS: BP 144/90; PULSE 69; RESP 18; TEMP 98.3
[2018-03-13] MEDS: SIMETHICONE 80 MG CHEWABLE TAB PO PRN (21:59)
[2018-03-14] MEDS: IBUPROFEN 600 MG TAB PO PRN ×2 (04:57→11:21)
[2018-03-14 07:15] VITALS: BP 131/81; PULSE 68; RESP 20; TEMP 97.9
[2018-03-14] MEDS: SIMETHICONE 80 MG CHEWABLE TAB PO PRN (07:23)
[2018-03-14] MEDS: PRENATAL VITAMIN CHEWABLE TAB PO SCH (09:23)
[2018-03-14] MEDS ORDERED: OXYC1TAB63 PO (12:21)
--- NOTE | 2018-03-14 12:22 | HHI.DS ---
Admission Date Mar 09, 2018 at 10:12 Admitting Diagnosis Diagnosis: : Primary : Female, Single Pt Condition on Discharge: Good Discharge Disposition: Discharge Home Discharge Instructions Diet Instructions: As Tolerated, No Restrictions Activities You Can Perform: Pelvic Rest Lisa Stephenson MD March 14, 2018 12:22
--- NOTE | 2018-03-14 12:22 | HHI.DCPOC ---
Discharge Care Plan Your Health Problems Are: delivery Report Symptoms to Your Doctor -Temperature above 100.5 degrees -Redness, of incision or excessive or foul smelling drainage -Unusual pain or calf pain -Increased vaginal bleeding -Painful or difficulty urinating -Feelings of extreme sadness or anxiety after 2 weeks Goals to Promote Your Health * To prevent worsening of your condition and complications * To maintain your health at the optimal level Directions to Meet Your Goals Take your medications as prescribed Follow your dietary instruction Follow activity as directed Ensure plenty of rest for recovery Drink fluids for hydration Keep your appointments as scheduled Take your immunizations and boosters as scheduled If your symptoms worsen call your PCP, if no PCP go to Urgent Care Center or Emergency Room Smoking is Dangerous to Your Health. Avoid second hand smoke Call the 24-hour crisis hotline for domestic abuse at Lisa Stephenson MD March 14, 2018 12:22
[2018-03-14] MEDS: oxyCODONE/ACETAMINOPHEN 5 MG/325 MG TAB PO PRN (12:59)
== END 2018-03-14 14:27 | disposition home or self-care (01) | DRG 765 ==
LOC: H2EA 09:32 → OBSVTOIN 03-09 10:12 → H1EA 03-12 12:47
PROVIDERS: ADMIT Obstetrics & Gynecology; ATTEND Obstetrics & Gynecology
PROC: 10D00Z1 Extraction of Products of Conception, Low, Open Approach (ICD-10-PCS; principal; 2018-03-12)
DX: O41.03X0 Oligohydramnios, third trimester, not applicable or unspecified (principal); O16.3 Unspecified maternal hypertension, third trimester; O99.013 Anemia complicating pregnancy, third trimester; Z37.0 Single live birth; Z83.3 Family history of diabetes mellitus; Z23 Encounter for immunization; Z3A.37 37 weeks gestation of pregnancy
CPT/HCPCS: 76815; 76816; 76818; 76820; 80053; 80307; 81001; 84112; 85025; 86850; 86900; 86901; 87081; 87086; 87150; 90715; G0481; J0131; J0690; J1100; J1200; J1885; J2274; J2405; J2590; J7120